=== PATIENT | female | born 1995 | race Caucasian/White ===

== ENCOUNTER 2023-05-02 16:50 | Outpatient (OUT) | payer OTHER, SELFPAY ==
[2023-05-02 17:43] LABS: Estimated Average Glucose 108 mg/dL; Glycohemoglobin A1C 5.4 % (4.5-6.2)
[2023-05-02 18:24] LABS: Chol HDL Ratio 5.4; Cholesterol 196 mg/dL (<=200); HDL Cholesterol 36 mg/dL (40-60); Triglycerides 119 mg/dL (<=150); VLDL CHOLESTEROL 23.8 mg/dL
== END 2023-05-02 16:51 | disposition home or self-care (01) ==
PROVIDERS: PCP Internal Medicine; Visit Provider Internal Medicine
DX: Z13.220 Encounter for screening for lipoid disorders (principal); Z13.1 Encounter for screening for diabetes mellitus
CPT/HCPCS: 36415; 80061; 83036

== ENCOUNTER 2024-01-17 22:15 | Emergency (ER) | payer OTHER, SELFPAY ==
--- OUTSIDE RECORDS SUMMARY | 2024-01-17 22:22 | XMS_ITS | CCD ---
Author Organization [facility] [employer] Care Team Providers Care Manager Motor Name Role Phone ELROY OQUENDO Attending Unavailable ELROY OQUENDO Admitting Unavailable JOS GODDARD Consulting Unavailable SHAIKH GONZALEZ Admitting Unavailable LUANN GONZALEZ Primary Care Unavailable SHAIKH GONZALEZ Attending Unavailable SHAIKH GONZALEZ Consulting Unavailable VINAYAK CHINO Attending Unavailable VINAYAK CHINO Consulting Unavailable LUANN GONZALEZ Primary Care Unavailable VINAYAK CHINO Admitting Unavailable Maria E Lucio Unavailable Ama Thomas Unavailable Leslie Clancy Unavailable Medications Current Medications Medication Drug Class(es) Dates Sig (Normalized) Sig (Original) atenolol 50 mg oral tablet (5 sources) beta-Adrenergic Pavithra Start: 10-03-2023 Atenolol Active MG PO October 03, 2023 12:00am FreeTextSig: Oral; Note: Source Status: Taking; Qty: 90 Tablet; Provider: EUGENIA BEY Atenolol 50 MG O ral for 90 Days Active sertraline 100 mg oral tablet (5 sources) Serotonin Reuptake Inhibitor Start: 10-03-2023 take 100 mg by mouth once daily Sertraline Active 100 MG PO Daily October 03, 2023 12:00am take 1 tablet by mouth once napoleon y Sertraline HCl 100 MG take 1 tablet by mouth once daily Oral for 90 Days Active Completed/Discontinued Medications Medication Drug Class(es) Dates Sig (Normalized) Sig (Original) oseltamivir 75 mg oral capsule (2 sources) Neuraminidase Inhibitor Start: 04-20-2022 take 1 capsule by mouth every twelve hours Oseltamivir Phosphate 75 MG 1 capsule Orally Twice a day for 5 day(s) Mar, Not-Taking Problems Active Problems Problem Classification Problem Date Documented Date Episodic/Chronic Anxiety disorders (4 sources) Anxiety disorder, unspecified; Translations: [ANXIETY DISORDER UNSPECIFIED] Onset: 04-24-2021 Chronic Essential hypertension (1 source) Essential (primary) hypertension; Translations: [ESSENTIAL PRIMARY HYPERTENSION] Onset: 04-29-2021 Chronic Influenza (1 source) Influenza due to other identified influenza virus with other respiratory manifestations Episodic Other upper respiratory disease (1 source) Allergic rhinitis, unspecified Onset: 11-24-2021 Resolved: 11-24-2021 Chronic Unclassified (1 source) 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; Translations: [OTH CNG MLFM SYN PRDM ASC SHRT STAT] Onset: 04-29-2021 Unclassified (1 source) CONTACT W/AND (SUSP) EXPOS COVID-19; Translations: [CONTACT W/AND (SUSP) EXPOS COVID-19] Onset: 02-14-2021 Past or Other Problems Problem Classification Problem Date Documented Da te Episodic/Chronic Other upper respiratory infections (1 source) Acute pharyngitis, unspecified Onset: 11-24-2021 Resolved: 11-24-2021 Episodic Unclassified (1 source) Cough, unspecified type R05.9 Onset: 11-24-2021 Resolved: 11-24-2021 Unclassified (2 sources) Contact with and (suspected) exposure to covid-19 Z20.822 Viral infection (1 source) COVID-19 Results Test Name Value Interpretation Reference Range Facility COVID/FLU RT-PCRon SARS-CoV-2 (COVID-19) RNA RADHA+probe Ql (Unsp spec) Positive [facility] Other COVID/FLU RT-PCR neggative [employer] ([facility]) Other COVID/FLU RT-PCR Negative [employer] ([facility]) Other COVID/FLU/RSV RT-PCRon 04-20 SARS-CoV-2 (COVID-19) RNA RADHA+probe Ql (Unsp spec) Negative [facility] Other COVID/FLU/RSV RT-PCR Positive [facility] Other COVID/FLU/RSV RT-PCR Negative [facility] Other COVID Quick Testingon 2021 Result Negative [facility] Other Quick Strepon 11-24-2021 S. pyogenes Org specific cx Ql (Throat) Negative [facility] Other Quick Strep [facility] Other CHROMOSOME ANALYSIS, WHOLE B LOODon 05-16-2021 Cells analyzed 20 Normal [facility] Comment on above: Result Comment: Perf ormed at: [facility] Performed By: #### C HROMWB #### [facility] [address] [place] [address] Dr. Shavon Nur Cells counted 20 Normal [facility] Comment on above: Result Comment: Perf ormed at: [facility] Performed By: #### C HROMWB #### [facility] [address] [place] [address] Dr. Shavon Nur Cells karyotyped 2 Normal [facility] Comment on above: Result Comment: Perf ormed at: [facility] Performed By: #### C HROMWB #### [facility] [address] [place] [address] Dr. Shavon Nur Cytogenetic Result Comment: Normal [facility] Comment on above: Result Comment: 46,X X Performed at: [facility] Performed By: #### C HROMWB #### [facility] [address] [address] [address] Shavon Nur Director Review Comment: Normal [facility] Comment on above: Result Comment: Connie Aviles, PhD Performed at: [facility] Performed By: #### C HROMWB #### [facility] [address] [place] [address] Dr. Shavon Nur GTG Band Resolution Achieved 500 Normal [facility] Comment on above: Result Comment: Perf ormed at: [facility] Performed By: #### C HROMWB #### [facility] [address] [address] [address] Shavon Nur Interpretation Comment: Normal [facility] Comment on above: Result Comment: NORM AL FEMALE KARYOTYPE . Cytogenetic analysis of PHA stimulated cultures has revealed a FEMALE karyotype with an apparently normal GTG banding pattern in all cells observed. . . This result does not exclude the possibility of subtle rearrangements below the resolution of cytogenetics or congenital anomalies due to other etiologies. . Performed at: [facility] Performed By: #### C HROMWB #### [facility] [address] [place] [address] Dr. Shavon Nur PDF . Normal [facility] Comment on above: Result Comment: Perf ormed at: CB Performed By: #### C HROMWB #### [facility] [address] [place] [address] Dr. Shavon Nur Specimen type Nom (Spec) Comment: Normal [facility] Comment on above: Result Comment: BLOO D Performed at: [facility] Performed By: #### C HROMWB #### [facility] [address] [place] [address] Dr. Shavon Nur RENIN ACTIVITYon 05-03-2021 Renin Activity, Plasma 0.404 ng/mL/hr Normal 0.167-5.380 [facility] Comment on above: Performed By: #### H STROPN, CMP, TSH #### [facility] [address] [place] [address] Kendal Ricardo ALDOSTERONE LCMS, SERUMon Aldosterone 1.8 ng/dL Normal 0.0-30.0 [facility] Comment on above: Performed By: #### H STROPN, CMP, TSH #### [facility] [address] [place] [address] Kendal Haleigh CBC AUTO DIFFon 04-24-2021 BASO # 0.1 103/ul Normal 0.0-0.1 [facility] Comment on above: Performed By: #### C BC #### [facility] [address] [place] [address] Dr. Shavon Nur Basophils/100 WBC (Bld) 0.8 % Normal 0.2-2.0 [facility] Comment on above: Performed By: #### C BC #### [facility] [address] [place] [address] Dr. Shavon Nur EO # 0.2 103/ul Normal 0.0-0.7 [facility] Comment on above: Performed By: #### C BC #### [facility] [address] [place] [address] Dr. Shavon Nur Eosinophils/100 WBC (Bld) 2.7 % Normal 0.9-7.0 [facility] Comment on above: Performed By: #### C BC #### [facility] [address] [place] [address] Dr. Shavon Nur Erythrocyte distribution width (RBC) [Ratio] 13.2 % Normal 11.0-15.0 [facility] Comment on above: Performed By: #### C BC #### [facility] [address] [place] [address] Dr. Shavon Nur Hematocrit (Bld) [Volume fraction] 36.3 % Normal 36.0-48.0 [facility] Comment on above: Performed By: #### C BC #### [facility] [address] [place] [address] Dr. Shavon Nur Hemoglobin (Bld) [Mass/Vol] 12.2 g/dL Normal 12.0-16.0 [facility] Comment on above: Performed By: #### C BC #### [facility] [address] [place] [address] Dr. Shavon Nur IG # 0.03 10e3/ul Normal 0.00-0.03 [facility] Comment on above: Performed By: #### C BC #### [facility] [address] [place] [address] Dr. Shavon Nur IG % 0.4 % Normal 0.0-0.5 [facility] Comment on above: Performed By: #### C BC #### [facility] [address] [place] [address] Dr. Shavon Nur LYMPH # 3.2 103/ul Normal 1.2-3.8 [facility] Comment on above: Performed By: #### C BC #### [facility] [address] [place] [address] Dr. Shaovn Nur Lymphocytes/100 WBC (Bld) 38.3 % Normal 20.5-60.0 [facility] Comment on above: Performed By: #### C BC #### [facility] [address] [place] [address] Dr. Shavon Nur MANUAL DIFF REQ NO Normal [facility] Comment on above: Performed By: #### C BC #### [facility] [address] [place] [address] Dr. Shavon Nur MCH (RBC) [Entitic mass] 28.8 pg Normal 26.7-34.0 [facility] Comment on above: Performed By: #### C BC #### [facility] [address] [place] [address] Dr. Shavon Nur MCHC (RBC) [Mass/Vol] 33.6 g/dL Normal 29.9-35.2 [facility] Comment on above: Performed By: #### C BC #### [facility] [address] [place] [address] Dr. Shavon Nur MCV (RBC) [Entitic vol] 85.6 fL Normal 81.0-99.0 [facility] Comment on above: Performed By: #### C BC #### [facility] [address] [place] [address] Dr. Shavon Nur MONO # 0.6 103/ul Normal 0.3-0.8 [facility] Comment on above: Performed By: #### C BC #### [facility] [address] [place] [address] Dr. Shavon Nur Monocytes/100 WBC (Bld) 6.9 % Normal 1.7-12.0 [facility] Comment on above: Performed By: #### C BC #### [facility] [address] [place] [address] Dr. Shavon Nur NEUT # 4.3 103/ul Normal 1.4-6.5 [facility] Comment on above: Performed By: #### C BC #### [facility] [address] [place] [address] Dr. Shavon Nur Neutrophils/100 WBC (Bld) 50.9 % Normal 43.0-75.0 [facility] Comment on above: Performed By: #### C BC #### [facility] [address] [place] [address] Dr. Shavon Nur Platelet mean volume (Bld) [Entitic vol] 9.2 fL Critically low 9.5-13.5 [facility] Comment on above: Performed By: #### C BC #### [facility] [address] [place] [address] Dr. Shavon Nur PLT 382 103/ul Normal 150-450 [facility] Comment on above: Performed By: #### C BC #### [facility] [address] [place] [address] Dr. Shavon Nur RBC 4.24 106/ul Normal 4.20-5.40 [facility] Comment on above: Performed By: #### C BC #### [facility] [address] [place] [address] Dr. Shavon Nur WBC 8.4 103/ul Normal 4.0-11.0 [facility] Comment on above: Performed By: #### C BC #### [facility] [address] [place] [address] Dr. Shavon Nur PROF 14(COMP METB)on 021 Albumin [Mass/Vol] 3.8 g/dL Normal 3.5-5.0 [facility] Comment on above: Performed By: #### T TERESSA, CMP #### [facility] [address] [place] [address] Dr. Shavon Nur Albumin/Globulin [Mass ratio] 0.9 {ratio} Normal [facility] Comment on above: Performed By: #### T SH, CMP #### [facility] [address] [place] [address] Dr. Shavon Nur ALP [Catalytic activity/Vol] 103 U/L Normal 38-126 [facility] Comment on above: Performed By: #### T TERESSA, CMP #### [facility] [address] [place] [address] Dr. Shavon Nur ALT [Catalytic activity/Vol] 61 U/L Critically high 9-52 [facility] Comment on above: Performed By: #### T SH, CMP #### [facility] [address] [place] [address] Dr. Shavon Nur Anion gap [Moles/Vol] 11.1 mmol/L Normal [facility] Comment on above: Performed By: #### T SH, CMP #### [facility] [address] [place] [address] Dr. Shavon Nur AST [Catalytic activity/Vol] 32 U/L Normal 14-36 [facility] Comment on above: Performed By: #### T SH, CMP #### [facility] [address] [place] [address] Dr. Shavon Nur Bilirubin [Mass/Vol] 0.6 mg/dL Normal 0.2-1.3 [facility] Comment on above: Performed By: #### T SH, CMP #### [facility] [address] [place] [address] Dr. Shavon Nur Calcium [Mass/Vol] 9.3 mg/dL Normal 8.4-10.2 [facility] Comment on above: Performed By: #### T SH, CMP #### [facility] [address] [place] [address] Dr. Shavon Nur Chloride [Moles/Vol] 103 mmol/L Normal 98-107 [facility] Comment on above: Performed By: #### T SH, CMP #### [facility] [address] [place] [address] Dr. Shavon Nur CO2 [Moles/Vol] 26.8 mmol/L Normal 22.0-30.0 [facility] Comment on above: Performed By: #### T SH, CMP #### [facility] [address] [place] [address] Dr. Shavon Nur Creatinine [Mass/Vol] 0.77 mg/dL Normal 0.52-1.04 [facility] Comment on above: Performed By: #### T SH, CMP #### [facility] [address] [place] [address] Dr. Shavon Nur EGFR-AF SOMALI >60 Normal >=60 [facility] Comment on above: Performed By: #### T SH, CMP #### [facility] [address] [address] [address] Shavon Nur EGFR-NON AF SOMALI >60 Normal >=60 [facility] Comment on above: Performed By: #### T SH, CMP #### [facility] [address] [address] [address] Shavon Nur Globulin (S) [Mass/Vol] 4.4 g/dL Normal [facility] Comment on above: Performed By: #### T SH, CMP #### [facility] [address] [address] [address] Shavon Nur Glucose [Mass/Vol] 165 mg/dL Critically high 74-106 [facility] Comment on above: Performed By: #### T SH, CMP #### [facility] [address] [place] [address] Dr. Shavon Nur Potassium [Moles/Vol] 3.9 mmol/L Normal 3.4-5.0 [facility] Comment on above: Performed By: #### T SH, CMP #### [facility] [address] [place] [address] Dr. Shavon Nur Protein [Mass/Vol] 8.2 g/dL Normal 6.1-8.2 [facility] Comment on above: Performed By: #### T SH, CMP #### [facility] [address] [place] [address] Dr. Shavon Nur Sodium [Moles/Vol] 137 mmol/L Normal 137-145 [facility] Comment on above: Performed By: #### T SH, CMP #### [facility] [address] [address] [address] Shavon Nur Urea nitrogen [Mass/Vol] 8.0 mg/dL Normal 7.0-17.0 [facility] Comment on above: Performed By: #### T SH, CMP #### [facility] [address] [address] [address] Shavon Nur Urea nitrogen/Creatinine [Mass ratio] 10.4 mg/mg Normal [facility] Comment on above: Performed By: #### T SH, CMP #### [facility] [address] [place] [address] Dr. Shavon Nur TSHon 04-24-2021 TSH 4.424 uIU/mL Normal 0.470-4.680 [facility] Comment on above: Performed By: #### T SH, CMP #### [facility] [address] [place] [address] Dr. Shavon Nur TSH RANGE SEE BELOW Normal [facility] Comment on above: Result Comment: <0.3 4 UIU/ml HYPERTHYROID 0.34-5.60 UIU/ml EUTHYROID >5.60 UIU/ml HYPOTHYROID Performed By: #### T SH, CMP #### [facility] [address] [place] [address] Dr. Shavon Nur ER URINE PROFILEon Bilirubin Ql (U) Negative Normal NEGATIVE [facility] Comment on above: Performed By: #### H VIELKA, CMP, TSH #### [facility] [address] [place] [address] Kendal Haleigh Clarity (U) CLEAR Normal CLEAR [facility] Comment on above: Performed By: #### H VIELKA, CMP, TSH #### [facility] [address] [place] [address] Kendal Haleigh Color (U) LT. YELLOW Normal YELLOW [facility] Comment on above: Performed By: #### H VIELKA, CMP, TSH #### [facility] [address] [place] [address] Kendal Haleigh ERUAHD A micrscopic examination will be performed if indicated. Normal [facility] Comment on above: Performed By: #### H VIELKA, CMP, TSH #### [facility] [address] [place] [address] Kendal Haleigh Glucose Ql (U) Negative Normal NEGATIVE [facility] Comment on above: Performed By: #### H STROJOE, CMP, TSH #### [facility] [address] [place], [place] [address] Kendal Haleigh Hemoglobin Ql (U) SMALL Abnormal NEGATIVE [facility] Comment on above: Performed By: #### H STROPN, CMP, TSH #### [facility] [address] [place] [address] Kendal Haleigh Ketones Ql (U) Negative Normal NEGATIVE [facility] Comment on above: Performed By: #### H STROPN, CMP, TSH #### [facility] [address] [place] [address] Kendal Haleigh LEUKOCYTES Negative Normal NEGATIVE [facility] Comment on above: Performed By: #### H STROPN, CMP, TSH #### [facility] [address] [place] [address] Kendal Haleigh Nitrite Ql (U) Negative Normal NEGATIVE [facility] Comment on above: Performed By: #### H STROPN, CMP, TSH #### [facility] [address] [place] [address] Kendal Haleigh pH (U) 5.5 [pH] Normal 5-9 [facility] Comment on above: Performed By: #### H STROPN, CMP, TSH #### [facility] [address] [place] [address] Kendal Daleyen SPEC GRAVITY 1.010 Normal 1.005-<=1.025 [facility] Comment on above: Performed By: #### H STROPN, CMP, TSH #### [facility] [address] [place] [address] Kendal Haleigh UA PROTEIN Negative Normal NEGATIVE/ TRACE [facility] Comment on above: Performed By: #### H STROPN, CMP, TSH #### [facility] [address] [place] [address] Kendal Haleigh UR MICRO IND INDICATED Normal [facility] Comment on above: Performed By: #### H STROPN, CMP, TSH #### [facility] [address] [place] [address] Kendal Haleigh Urobilinogen Qn (U) 0.2 {Jennifer'U}/dL Normal 0.2 - 1. 0 [facility] Comment on above: Performed By: #### H STROPN, CMP, TSH #### [facility] [address] [place], [place] [address] Kendal Haleigh URon 04-13-2021 , QUAL Negative Normal NEGATIVE [facility] Comment on above: Performed By: #### H VIELKA, CMP, TSH #### [facility] [address] [id number] Kendal Haleigh URINE MICROSCOPIC ONLYon BACTERIA NONE SEEN Normal NONE SEEN [facility] Comment on above: Performed By: #### H VIELKA, CMP, TSH #### [facility] [address] [address] Kendal Haleigh Bacteria identified Cx Nom (U) NOT INDICATED Normal [facility] Comment on above: Performed By: #### H VIELKA, CMP, TSH #### [facility] [address] [address] Kendal Halegih CAST NONE SEEN Normal NONE SEEN [facility] Comment on above: Performed By: #### H VIELKA, CMP, TSH #### [facility] [address] [address] Kendal Haleigh Crystals LM Nom (Urine sed) NONE SEEN Normal NONE SEEN [facility] Comment on above: Performed By: #### H VIELKA, CMP, TSH #### [facility] [address] [id number] Kendal Haleigh Epithelial cells LM Ql (Urine sed) RARE Normal NONE SEEN /RARE [facility] Comment on above: Performed By: #### H VIELKA, CMP, TSH #### [facility] [address] [address] Kendal Haleigh MUCOUS NONE SEEN Normal NONE SEEN [facility] Comment on above: Performed By: #### H STROJOE, CMP, TSH #### [facility] [address] [id number] Kendal Haleigh RBC 0-2 Normal 0-2 [facility] Comment on above: Performed By: #### H STROJOE, CMP, TSH #### [facility] [address] [address] Kendal Haleigh WBC NONE SEEN Normal NONE SEEN [facility] Comment on above: Performed By: #### H STROPN, CMP, TSH #### [facility] [address] [place] [address] Kendal Haleigh CBC AUTO DIFFon 01-23-2021 BASO # 0.0 103/ul Normal 0.0-0.1 [facility] Comment on above: Performed By: #### H STROPN, CMP, TSH #### [facility] [address] [place] [address] Kendal Haleigh Basophils/100 WBC (Bld) 0.4 % Normal 0.2-2.0 [facility] Comment on above: Performed By: #### H STROPN, CMP, TSH #### [facility] [address] [place] [address] Kendal Haleigh EO # 0.1 103/ul Normal 0.0-0.7 [facility] Comment on above: Performed By: #### H STROPN, CMP, TSH #### [facility] [address] [place] [address] Kendal Haleigh Eosinophils/100 WBC (Bld) 1.1 % Normal 0.9-7.0 [facility] Comment on above: Performed By: #### H STROPN, CMP, TSH #### [facility] [address] [place] [address] Kendalfani Ricardo Erythrocyte distribution width (RBC) [Ratio] 13.1 % Normal 11.0-15.0 [facility] Comment on above: Performed By: #### H STROPN, CMP, TSH #### [facility] [address] [place] [address] Kendalfani Ricardo Hematocrit (Bld) [Volume fraction] 36.7 % Normal 36.0-48.0 [facility] Comment on above: Performed By: #### H STROPN, CMP, TSH #### [facility] [address] [place] [address] Kendal Haleigh Hemoglobin (Bld) [Mass/Vol] 12.5 g/dL Normal 12.0-16.0 [facility] Comment on above: Performed By: #### H STROPN, CMP, TSH #### [facility] [address] [place], [place] [address] Kendal Haleigh IG # 0.03 10e3/ul Normal 0.00-0.03 [facility] Comment on above: Performed By: #### H VIELKA, CMP, TSH #### [facility] [address] [place], [place] [address] Kendal Haleigh IG % 0.4 % Normal 0.0-0.5 [facility] Comment on above: Performed By: #### H VIELKA, CMP, TSH #### [facility] [address] [id number] Kendal Haleigh LYMPH # 2.2 103/ul Normal 1.2-3.8 [facility] Comment on above: Performed By: #### H VIELKA, CMP, TSH #### [facility] [address] [id number] Kendal Haleigh Lymphocytes/100 WBC (Bld) 27.4 % Normal 20.5-60.0 [facility] Comment on above: Performed By: #### H VIELKA, CMP, TSH #### [facility] [address] [id number] Kendal Haleigh MANUAL DIFF REQ NO Normal [facility] Comment on above: Performed By: #### H VIELKA, CMP, TSH #### [facility] [address] [id number] Kendal Haleigh MCH (RBC) [Entitic mass] 28.8 pg Normal 26.7-34.0 [facility] [facility] Comment [facility] above: Performed By: #### H VIELKA, CMP, TSH #### [facility] [address] [id number] Kendal Haleigh MCHC (RBC) [Mass/Vol] 34.1 g/dL Normal 29.9-35.2 [facility] Comment on above: Performed By: #### H STROJOE, CMP, TSH #### [facility] [address] [id number] Kendal Haleigh MCV (RBC) [Entitic vol] 84.6 fL Normal 81.0-99.0 [facility] Comment on above: Performed By: #### H STROPN, CMP, TSH #### [facility] [address] [id number] Kendal Haleigh MONO # 0.6 103/ul Normal 0.3-0.8 [facility] Comment on above: Performed By: #### H STROPN, CMP, TSH #### [facility] [address] [address] Kendal Haleigh Monocytes/100 WBC (Bld) 7.9 % Normal 1.7-12.0 [facility] Comment on above: Performed By: #### H STROPN, CMP, TSH #### [facility] [address] [address] Kendal Haleigh NEUT # 5.0 103/ul Normal 1.4-6.5 [facility] Comment on above: Performed By: #### H STROPN, CMP, TSH #### [facility] [address] [place] [address] Kendal Haleigh Neutrophils/100 WBC (Bld) 62.8 % Normal 43.0-75.0 [facility] Comment on above: Performed By: #### H STROPN, CMP, TSH #### [facility] [address] [id number] Kendal Haleigh Platelet mean volume (Bld) [Entitic vol] 9.3 fL Critically low 9.5-13.5 [facility] Comment on above: Performed By: #### H STROPN, CMP, TSH #### [facility] [address] [place] [address] Kendal Haleigh PLT 318 103/ul Normal 150-450 [facility] Comment on above: Performed By: #### H STROPN, CMP, TSH #### [facility] [address] [address] Kendal Haleigh RBC 4.34 106/ul Normal 4.20-5.40 [facility] Comment on above: Performed By: #### H STROPN, CMP, TSH #### [facility] [address] [address] Kendal Haleigh WBC 7.9 103/ul Normal 4.0-11.0 [facility] Comment on above: Performed By: #### H STROJOE, CMP, TSH #### [facility] [address] [place], [place] [address] Kendal Ricardo Covid-19 PCR (CVDTB)on 12-27 SARS-CoV-2 (COVID-19) RNA RADHA+probe Ql (Unsp spec) Not detected Normal NOT DETECTED [facility] Comment on above: Result Comment: This test is not yet approved or cleared by the [place] FDA. When there are no FDA-approved or cleared tests available, and other criteria are met, FDA can make tests available under an emergency access mechanism called an Emergency Use Authorization (EUA). The EUA for this test is supported by the Patrol Police Lieutenant of Health and Human Service's (HHS's) declaration that circumstances exist to justify the emergency use of in vitro diagnostics for the detection and/or diagnosis of the virus that causes COVID-19. This EUA will remain in effect (meaning this test can be used) for the duration of the COVID-19 declaration justifying emergency of IVDs, unless it is terminated or revoked by FDA (after which the test may no longer be used). When diagnostic testing is negative, the possibility of a false negative should be considered in the context of a patient's recent exposures and the presence of clinical signs and symptoms consistent with SARS-CoV-2. Performed By: #### C VDAGS, CVDTBH #### [facility] [address] [place], [place] [address] Kendal Daleyen PREG HCG QUALon 01-23-2021 , QUAL Negative Normal NEGATIVE [facility] Comment on above: Performed By: #### P REG #### [facility] [address] [place], [place] [address] Kendal Ricardo PROF 14(COMP METB)on 021 Albumin [Mass/Vol] 4.1 g/dL Normal 3.5-5.0 [facility] Comment on above: Performed By: #### H STROPN, CMP, TSH #### [facility] [address] [place], [place] [address] Kendal Ricardo Albumin/Globulin [Mass ratio] 1.0 {ratio} Normal [facility] Comment on above: Performed By: #### H STROPN, CMP, TSH #### [facility] [address] [address] Kendal Haleigh ALP [Catalytic activity/Vol] 123 U/L Normal 38-126 [facility] Comment on above: Performed By: #### H STROPN, CMP, TSH #### [facility] [address] [address] Kendal Haleigh ALT [Catalytic activity/Vol] 74 U/L Critically high 9-52 [facility] Comment on above: Performed By: #### H STROPN, CMP, TSH #### [facility] [address] [address] Kendal Haleigh Anion gap [Moles/Vol] 14.7 mmol/L Normal [facility] Comment on above: Performed By: #### H STROPN, CMP, TSH #### [facility] [address] [place] [address] Kendal Haleigh AST [Catalytic activity/Vol] 37 U/L Critically high 14-36 [facility] Comment on above: Performed By: #### H STROPN, CMP, TSH #### [facility] [address] [address] Kendal Haleigh Bilirubin [Mass/Vol] 0.6 mg/dL Normal 0.2-1.3 [facility] Comment on above: Performed By: #### H STROPN, CMP, TSH #### [facility] [address] [place] [address] Kendal Haleigh Calcium [Mass/Vol] 9.4 mg/dL Normal 8.4-10.2 [facility] Comment on above: Performed By: #### H STROPN, CMP, TSH #### [facility] [address] [address] Kendal Haleigh Chloride [Moles/Vol] 102 mmol/L Normal 98-107 [facility] Comment on above: Performed By: #### H STROPN, CMP, TSH #### [facility] [address] [address] Kendal Haleigh CO2 [Moles/Vol] 26.2 mmol/L Normal 22.0-30.0 [facility] Comment on above: Performed By: #### H STROPN, CMP, TSH #### [facility] [address] [address] Kendal Haleigh Creatinine [Mass/Vol] 0.75 mg/dL Normal 0.52-1.04 [facility] Comment on above: Performed By: #### H STROPN, CMP, TSH #### [facility] [address] [address] Kendal Haleigh EGFR-AF SOMALI >60 Normal >=60 [facility] Comment on above: Performed By: #### H STROPN, CMP, TSH #### [facility] [address] [address] Kendal Haleigh EGFR-NON AF SOMALI >60 Normal >=60 [facility] Comment on above: Performed By: #### H STROPN, CMP, TSH #### [facility] [address] [address] Kendal Haleigh Globulin (S) [Mass/Vol] 4.0 g/dL Normal [facility] Comment on above: Performed By: #### H STROPN, CMP, TSH #### [facility] [address] [address] Kendal Haleigh Glucose [Mass/Vol] 118 mg/dL Critically high 74-106 [facility] [place] [facility] Comment on above: Performed By: #### H STROPN, CMP, TSH #### [facility] [address] [address] Kendal Haleigh Potassium [Moles/Vol] 3.9 mmol/L Normal 3.4-5.0 [facility] Comment on above: Performed By: #### H STROPN, CMP, TSH #### [facility] [address] [address] Kendal Haleigh Protein [Mass/Vol] 8.1 g/dL Normal 6.1-8.2 [facility] Comment on above: Performed By: #### H STROPN, CMP, TSH #### [facility] [address] [address] Kendal Haleigh Sodium [Moles/Vol] 139 mmol/L Normal 137-145 [facility] Comment on above: Performed By: #### H JEFFREY VORA, TSH #### [facility] [address] [address] Kendal Ricardo Urea nitrogen [Mass/Vol] 7.0 mg/dL Normal 7.0-17.0 [facility] Comment on above: Performed By: #### H JEFFREY VORA, TSH #### [facility] [address] [address] Kendal Ricardo Urea nitrogen/Creatinine [Mass ratio] 9.3 mg/mg Normal [facility] Comment on above: Performed By: #### H JEFFREY VORA, TSH #### [facility] [address] [place] [address] Kendal Haleigh SYMPTOMATIC COVID-19 ANTIGEN on 01-23-2021 EUA Statement SEE BELOW Normal [facility] Comment on above: Result Comment: This test has not been FDA cleared or approved, but has been authorized by the FDA under an Emergency Use Authorization (EUA) for use by authorized laboratories certified under CLIA that meet the requirements to perform moderate or high complexity testing. This test has been authorized only for the detection of proteins from SARS-CoV-2, not for any other viruses or pathogens. The emergency use of this test is authorized for the duration of the declaration that circumstances exist justifying the authorization of emergency use of in vitro diagnostic tests for detection and/or diagnosis of Covid-19 under section 564(b)(1) of the Act, 21 U.S.C. 360bbb-3(b)(1), unless the declaration is terminated or authorization is revoked sooner. Performed By: #### C VDAGS, CVDTBH #### [facility] [address] [address] Kendal Haleigh SARS-CoV-2 (COVID-19) RNA RADHA+probe Ql (Unsp spec) Negative Normal NEGATIVE [facility] Comment on above: Result Comment: CONF IRMATION BY PCR PENDING PER CDC GUIDELINES/ SYMPTOMATIC PATIENT. Performed By: #### C VDAGS, CVDTBH #### [facility] [address] [place], [place] [address] Kendal Ricardo TROPONIN, HIGH SENSITIVITYon 01-23-2021 HSTROP <4.0 Normal 4.0-35.5 [facility] Comment on above: Result Comment: CUT- OFF POINTS HAVE BEEN ESTABLISHED BASED ON THE FOURTH UNIVERSAL DEFINITIONS OF MYOCARDIAL INFARCTION. THE UPPER REFERENCE LIMIT (URL) OF TROPONIN, DEFINED THE 99TH PERCENTILE OF cTnI DISTRIBUTION IN A REFERENCE POPULATION, HAS BEEN CONFIRMED THE DECISION THRESHOLD FOR AL DIAGNOSIS. Performed By: #### H STROPN, CMP, TSH #### [facility] [address] [place], [place] [address] Kendal Ricardo TSHon 01-23-2021 TSH 3.398 uIU/mL Normal 0.470-4.680 [facility] Comment on above: Performed By: #### H STROPN, CMP, TSH #### [facility] [address] [place], [place] [address] Kendal Ricardo TSH RANGE SEE BELOW Normal [facility] Comment on above: Result Comment: <0.3 4 UIU/ml HYPERTHYROID 0.34-5.60 UIU/ml EUTHYROID >5.60 UIU/ml HYPOTHYROID Performed By: #### H STROPN, CMP, TSH #### [facility] [address] [place], [place] [address] Kendal Ricardo Vital Signs Date Time Vital Sign Value Performing Clinician Facility 10-03-2023 17:04-0400 Body height 157.48 cm [facility] 10-03-2023 17:04-0400 Body mass index (BMI) [Ratio] 37.9 kg/m2 [facility] 10-03-2023 17:04-0400 Body temperature 99.4 [degF] [facility] 10-03-2023 17:04-040 Body weight 94 kg [facility] 10-03-2023 17:04-0400 Diastolic blood pressure 108 mm[Hg] [facility] 10-03-2023 17:04-0400 Heart rate 106 /min [facility] 10-03-2023 17:04-0400 Respiratory rate 18 /min [facility] 10-03-2023 17:04-0400 SaO2% (BldA) [Mass fraction] 99 % [facility] 10-03-2023 17:04-0400 Systolic blood pressure 167 mm[Hg] [facility] 03-17-2023 13:55-0400 Body height 157.48 cm Leslie Clancy Other [facility] 03-17-2023 13:55-0400 Body mass index (BMI) [Ratio] 36.94 kg/m2 Leslie Clancy Other [facility] Other 03-17-2023 13:55-0400 Body temperature 98.4 [degF] Leslie Clancy Other [facility] Other 03-17-2023 13:55-0400 Body weight 91.63 kg Leslie Clancy Other [facility] Other 03-17-2023 13:55-0400 Respiratory rate 18 /min Leslie Clancy Other [facility] Other 03-17-2023 13:55-0400 SaO2% (BldA) [Mass fraction] 99 % Leslie Clancy Other [facility] Other 04-20-2022 15:30-0500 Body height 157.48 cm Ama Thomas Other [facility] Other 04-20-2022 15:30-0500 Body mass index (BMI) [Ratio] 35.84 kg/m2 Ama Thomas Other [facility] Other 04-20-2022 15:30-0500 Body temperature 98 [degF] Ama Thomas Other [facility] Other 04-20-2022 15:30-0500 Body weight 88.91 kg Ama Thomas Other [facility] Other 04-20-2022 15:30-0500 Diastolic blood pressure 68 mm[Hg] Ama Thomas Other [facility] Other 04-20-2022 15:30-0500 Respiratory rate 18 /min Ama Thomas Other [facility] Other 04-20-2022 15:30-0500 SaO2% (BldA) [Mass fraction] 96 % Ama Thomas Other [facility] Other 04-20-2022 15:30-0500 Systolic blood pressure 132 mm[Hg] Ama Thomas Other [facility] Other 11-24-2021 15:55-0400 Body height 157.48 cm Maria E Khadijah Other [facility] Other 11-24-2021 15:55-0400 Body mass index (BMI) [Ratio] 33.83 kg/m2 Maria E Khadijah Other [facility] Other 11-24-2021 15:55-0400 Body temperature 97.7 [degF] Maria E Khadijah Other [facility] Other 11-24-2021 15:55-0400 Body weight 83.92 kg Maria E Khadijah Other [facility] Other 11-24-2021 15:55-0400 Respiratory rate 18 /min Maria E Khadijah Other [facility] Other 11-24-2021 15:55-0400 SaO2% (BldA) [Mass fraction] 98 % Maria E Lucio Other [facility] Other Encounters Encounter Date Encounter Type Care Provider Facility Start: 10-03-2023 End: 10-03-2023 ambulatory [facility] Work Phone: Start: 10-03-2023 End: 10-03-2023 Patient encounter procedure [facility] Work Phone: Start: 03-17-2023 End: 03-17-2023 ambulatory Leslie Clancy Other [facility] Other Start: 03-17-2023 Office outpatient visit 15 minutes Lesliefarida Clancy [facility] Start: 04-20-2022 End: 04-20-2022 ambulatory Ama Thomas Other [facility] Other Start: 04-20-2022 Office outpatient visit 15 minutes Ama Thomas [facility] Start: 11-24-2021 End: 11-24-2021 ambulatory Maria E Lucio Other [facility] Other Start: 11-24-2021 Office outpatient ne w 30 minutes Maria E Lucio [facility] Start: 04-24-2021 End: 04-25-2021 ambulatory SHAIKH EUGENIA Facility:[facility] Start: 04-13-2021 End: 04-13-2021 ambulatory VINAYAK CHINO Facility:[facility] Start: 01-23-2021 End: 01-23-2021 ambulatory ELROY OQUENDO Facility:[facility] Payers Date Payer Category Payer Unknown [id number] [id number] [id number] 1995 Unknown [id number] [id number] [id number] 1996 Unknown [id number] [id number] [id number] 1958 Medicaid [id number] 1958 Unknown [id number] Unknown [id number] Social History Date Type Detail Facility Sex Assigned At [facility] Other Start: 10-03-2023 [facility] Start: 1995 Sex Assigned At Female [facility] Evaluation note 03-17-2023 Note Date & Type Note Facility 03-17-2023 Evaluation note Encounter Date Diagnosis Assessment Notes Feb, Contact with and (suspected) exposure to covid-19 (ICD-10 - Z20.822) Feb, COVID-19 (ICD-10 - U07.1) COVID testing is positive. Recommended patient initiate self quarantine per CDC guidlines: for at least 5 days from symptom onset, afebrile for >24 hours without use of antipyretics, and symptoms are mostly resolved. Advised patient to treat symptomatically as discussed, rest, stay hydrated. Immediate evaluation via ED if warning symptoms of respiratory distress, intractable fevers, severe abdominal pain, inability to keep down foods or fluids, or s/s of dehydration. Follow up with PCP for further evaluation and mgmt. [facility] Other Evaluation note 04-20-2022 Note Date & Type Note Facility 04-20-2022 Evaluation note Encounter Date Diagnosis Assessment Notes Mar, Contact with and (suspected) exposure to covid-19 (ICD-10 - Z20.822) flu A pos, covid and rsv neg, see above. Mar, Influenza A (ICD-10 - J10.1) Discussed viral vs bacterial etiology with pt and how her sx are viral at this time. Therefore, no abx is indicated for tx. Pt to take meds as directed. Supportive care as discussed. Push fluids and rest. Pt received work note today. Pt is to take otc antipyretic prn for fever and aches. Pt is to take otc cough suppressant prn for cough. Pt is to be re-evaluated after tx if sx worsen or don't improve by pcp. Pt is to call the office with any questions or concerns regarding dx and tx. Pt understood and agreed to tx plan. [facility] Other Evaluation note 11-24-2021 Note Date & Type Note Facility 11-24-2021 Evaluation note Encounter Date Diagnosis Assessment Notes Nov, Cough, unspecified type (ICD-10 - R05.9) Nov, Allergic rhinitis, unspecified seasonality, unspecified trigger (ICD-10 - J30.9) Drink plenty fluids, get plenty of rest. Continue take your antihistamine daily. You may take Mucinex and Sudafed for nasal congestion. Follow-up with your family physician if no improvement in 2 to 3 days. Nov, Sore throat (ICD-10 - J02.9) [facility] Other Evaluation note Note Date & Type Note Facility Evaluation note [facility]: History general Narrative - Reported Note Date & Type Note Facility History general Narrative - Reported Type Medical History Depression Medical History HTN (hypertension) [facility] Other Summary Purpose Family History Relationship Condition Age at Onset Recorded Date/T anthony Not Specified Hypertension Unknown Advance Directives Advance Directive Response Recorded Date/ Time Advance Directives No October 03, 2023 4:56pm Chief Complaint and Reason for Visit Chief Complaint cough,congestion Additional Source Comments INFORMATION SOURCE (unrecogn ized section and content) DATE CREATED AUTHOR 05/17/2021 [facility] REASON FOR VISIT (unrecogniz ed section and content) BLUE HONDA, COUGH, NASAL CON GESTION, SORE THROAT X 4 DAYSCONGESTION SORE THROAT FEVER H/ACOUGH, CONGESTION Care Teams (unrecognized sec tion and content) Team Status: Active Member Role Status Dates Shaikh Eugenia MD Primary Care Provider Active Team Status: Inactive Member Role Status Dates Shaikh Eugenia MD Primary Care Provider Active Start: October 03, 2023 End: October 03, 2023 Erica Sigala APRN Attending Provider Active Start: October 03, 2023 End: October 03, 2023 Goals (unrecognized section and content) Goals may be documented in a n alternate section FOR RECORDS PERTAINING TO PATIENTS WHO ARE OR HAVE BEEN ENROLLED IN A CHEMICAL DEPENDENCY/SUBSTANCEABUSE PROGRAM, SOME INFORMATION MAY BE OMITTED. This clinical summary was aggregated from multiple sources. Caution should be exercised in using it in the provision of clinical care. This summary normalizes information from multiple sources, and as a consequence, information in this document may materially change the coding, format and clinical context of patient data. In addition, data may be omitted in some cases. CLINICAL DECISIONS SHOULD BE BASED ON THE PRIMARY CLINICAL RECORDS. [facility]. provides no warranty or guarantee of the accuracy or completeness of information in this document.
[2024-01-17 22:23] VITALS: BP 134/88; PULSE 65; TEMP 36.8; O2SAT 100; BMI 36.6
--- NOTE | 2024-01-17 22:39 | ED.GENADUL1 ---
HPI HPI - General Adult General Chief complaint: Shortness of Breath/Dyspnea Stated complaint: Shorthness of breath Time Seen by Provider: 01/17/24 22:24 Source: patient Mode of arrival: walk-in Limitations: no limitations History of Present Illness HPI narrative: 28-year-old female to the emergency department chief complaint of odd feeling in the back of her neck. Patient reports this is been ongoing for the last few days. It makes it feel like her throat is sticking together in the back and she is short of breath. It is worse when she is lying down. There is no chest pain. There is no fever, sweats, chills. No recent illness. She reports a mild sore throat. Seems to be worse at night. Related Data Previous Rx's ?Medication ?Instructions ?Recorded famotidine 20 mg tablet (Pepcid) 20 mg PO BID 2 weeks #28 tabs 01/17/24 Allergies Allergy/AdvReac Type Severity Reaction Status Date / Time No Known Drug Allergies Allergy Verified 01/17/24 22:23 Opioid HPI Opioid Management Most Recent Opioid Data: No Data to Display Review of Systems ROS Status of ROS 10 or more systems reviewed and unremarkable except as noted in history and below Exam Narrative Exam Narrative: VITALS: I have reviewed the triage vital signs. GENERAL: Well developed, well appearing adult in no acute distress. NEURO: Alert and oriented. Moves all extremities. Face is symmetric and expressive. EYES: PERRL. No scleral icterus or conjunctival injection. No discharge. HENT: Normocephalic, atraumatic. Hearing is grossly intact. Nares grossly patent and without discharge. Mucous membranes moist. No posterior oropharyngeal, erythema. Uvula midline. No unilateral peritonsillar swelling. NECK: No JVD. Patient moves neck without restriction. No appreciable lymphadenopathy CARDIO: Rhythm regular. Normal rate. No murmur, rub, or gallop. Pulses equal bilaterally in the upper and lower extremity. No lower extremity edema. PULM: Lungs clear to auscultation in all pérez. No wheezes, rales, or rhonchi. No conversational dyspnea. No splinting, stridor, or accessory muscle use. GI/: Abdomen is soft and non-tender. Normoactive bowel sounds. EXTREMITIES: Symmetric muscle bulk. No joint swelling. No clubbing, cyanosis, or deformity. SKIN: Warm and dry. Normal turgor. No rash or lesions appreciated. PSYCH: Mood, affect, and interaction is appropriate to the setting. Constitutional Vital Signs, click to edit/add: Last Vital Signs Temp 98.3 F 01/17/24 22:23 Pulse 65 01/17/24 22:23 Resp 16 01/17/24 22:23 BP 134/88 01/17/24 22:23 Pulse Ox 100 01/17/24 22:23 O2 Del Method Room Air 01/17/24 22:23 Course Vital Signs Vital signs: Vital Signs Temperature 98.3 F 01/17/24 22:23 Pulse Rate 65 01/17/24 22:23 Respiratory Rate 16 01/17/24 22:23 Blood Pressure 134/88 01/17/24 22:23 Pulse Oximetry 100 01/17/24 22:23 Oxygen Delivery Method Room Air 01/17/24 22:23 Temperature 98.3 F 01/17/24 22:23 Pulse Rate 65 01/17/24 22:23 Respiratory Rate 16 01/17/24 22:23 Blood Pressure 134/88 01/17/24 22:23 Pulse Oximetry 100 01/17/24 22:23 Oxygen Delivery Method Room Air 01/17/24 22:23 Medical Decision Making MDM Narrative Medical decision making narrative: Well-appearing 28-year-old female to the emergency department chief complaint of feeling like her throat is sticking together. Vital stable, the patient is afebrile. She is in no respiratory distress. There is no stridor. There is no oropharyngeal abnormality. Neck exam is unremarkable. No evidence of RPA or RESPIRATORY CARE FACULTY. Discussed with the patient risk factors for GERD and sleep apnea given her neck circumference and body habitus. She will try to sleep at an incline tonight. Will give a dose of dexamethasone to reduce inflammation. Trial of Pepcid for possible GERD. She is given PCP with whom to follow-up. Return precautions were discussed. All questions were answered. The patient was discharged home. Discharge Plan Discharge Stand Alone Forms: Work/School Release, Portal Instructions Chief Complaint: Shortness of Breath/Dyspnea Clinical Impression: Pharyngitis Patient Disposition: Home, Self-Care Time of Disposition Decision: 22:37 Condition: Good Mode of Transportation: Private Vehicle Prescriptions / Home Meds: New famotidine [Pepcid] 20 mg tablet 20 mg PO BID 14 Days Qty: 28 0RF Print Language: Polish Instructions: Pharyngitis (ED) Additional Instructions: Call the office of your primary care doctor to arrange for follow-up within the above-stated timeframe. Your ED visit was focused on your acute issue and does not replace primary care. You should review your labs, imaging, and diagnoses from this ED visit with your primary care physician. There may be non-emergent/ incidental findings that need further evaluation. You should review your vital signs including blood pressure with your PCP. If you were prescribed medications you should discuss possible side-effects and drug interactions with your pharmacist. Call 911 or go to the nearest Emergency Department if you develop any new or worsening symptoms. Seek immediate medical attention if you develop: worsening shortness of breath, difficulty breathing, chest pain, nausea, vomiting, weakness, numbness, tingling, excessive sweating, loss of motion in your arms or legs, or any new or worsening symptoms. Referrals: Physician,Non-Staff, [Primary Care Provider] - 1 week TAMMIE GIBBS [Physician] - 1 week
--- NOTE | 2024-01-17 22:41 | PC.NURSE ---
states that she thinks her glands are swollen, feels like her throat is sticking together especially at night. She states that she drank from a moldy water bottle and thinks that is where these symptoms are coming from.
[2024-01-17 22:42] VITALS: O2SAT 99
[2024-01-17] MEDS: DEXAMETHASONE SOD PHOS 10 MG/ML VIAL PO (22:47)
== END 2024-01-17 22:53 | disposition home or self-care (01) ==
PROVIDERS: Emergency Provider Student in an Organized Health Care Education/Training Program
DX: J02.9 Acute pharyngitis, unspecified (principal)
CPT/HCPCS: 99283; J1100